=== PATIENT | female | born 1990 | race Caucasian/White ===

== ENCOUNTER 2017-08-03 23:39 | Emergency (ER) | payer BC, OTHER ==
[~2017-08-03] VITALS: Ht 167.6 cm; Wt 58.5 kg
[~2017-08-03 23:39] MED LIST: PANT40TA3 PO; birth control
[2017-08-03] MEDS ORDERED: LIDOCAINE 2%/EPI 1:100,000 20 ML VIAL. ONE (23:55)
[2017-08-04] MEDS ORDERED: LIDOCAINE 2%/EPI 1:100,000 20 ML VIAL. IJ ONE
[2017-08-04] MEDS ORDERED: HYDROcodone/APAP 7.5/325MG 1 TAB TABLET PO ONE
[2017-08-04] MEDS ORDERED: ONDANSETRON ODT 4 MG TAB.RAPDIS PO ONE
[2017-08-04] MEDS ORDERED: DIPHTH,PERTUSS(ACELL),TET TOX 0.5 ML DISP.SYRIN. VAX IM ONE (00:30)
--- NOTE | 2017-08-04 00:51 | PHYS DOC ---
General Chief Complaint: LACERATION/AVULSION Stated Complaint: LACERATION ON HEAD Time Seen by MD: 23:56 Source: patient Exam Limitations: no limitations Problems: History of Present Illness Initial Comments Patient is a 26-year-old female brought to the ED by her spouse with right facial laceration. They report that immediately prior to arrival the patient was accidentally scratched on the right side of her face by the claw of a friend's pet dog. They state it was not an aggressive act but an accident however the patient did suffer a laceration which has been bleeding. Her pain is under control tetanus status is unknown she denies any immunocompromise. She denies actual headache or head trauma but just grazing of the skin with the claw the animal. EtOH odor is noted patient is to drinking a moderate amount of alcohol this evening. Timing/Duration: abrupt, this evening Severity: moderate Location: facial Prearrival Treatment: no prearrival treatment Modifying Factors: improves with other Associated Symptoms: other Allergies: Coded Allergies: No Known Drug Allergies (Unverified , 07/28/15) Past Medical History Medical History: migraines, other (bipolar) Surgical History: noncontributory Social History Smoker: cigarettes Alcohol: occasionally Drugs: none Constitutional: denies chills, denies fever Eyes: denies blurred vision, denies decreased acuity Ears: denies clear discharge, denies purulent discharge Nose: denies congestion, denies epistaxis Mouth: denies loose teeth, denies swelling Throat: denies swelling, denies neck stiffness Respiratory: denies cough, denies shortness of breath Skin: see HPI Neurological: denies headache, denies numbness, denies paresthesia Physical Exam General Appearance: WD/WN, no apparent distress Eyes: bilateral eye normal inspection, bilateral eye PERRL, bilateral eye EOMI Nose: normal inspection Mouth/Throat: normal mouth inspection, pharynx normal Neck: non-tender, supple Cardiovascular/Respiratory: normal peripheral pulses, no respiratory distress 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, no motor/sensory deficits, alert, normal mood/affect, oriented x 3 Skin: normal color, warm/dry (left-sided frontotemporal laceration seeping blood curved 2 cm appears clean no foreign bodies or contused tissues) Laceration/Wound Repair Laceration/Wound Repair : Wound Location: face Wound's Depth, Shape: superficial, irregular Wound Length (cm): 2 Wound Explored: no foreign body removed Betadine Prep?: Yes Anesthesia: Lidocaine w/ Epi Volume Anesthetic (ccs): 4 Wound Debrided: minimal Wound Repaired With: sutures Suture Size/Type: 6:0, nylon (I would never even know) Number of Sutures: 7 Layer Closure?: No Sterile Dressing Applied?: No Splint Applied?: No Progress Informed consent obtained. Analgesia achieved with 4 mL 2% lidocaine with epinephrine. The wound was cleansed extensively with Betadine and then irrigated with normal saline. 7, 6- 0 Ethilon sutures with good wound edge approximation. Patient tolerated procedure well no complications estimated blood loss minimal. Bactroban ointment applied by RN, wound care instructions given [id number] by me and in written form per departure instructions. Orders, Labs, Meds Patient initially received [place] 10 mg and Zofran by mouth. Tetanus status updated, Rocephin 1 g IM given prophylactically. Departure Time of Disposition: 00:49 Disposition: 01 HOME, SELF-CARE Diagnosis: facial laceration Condition: IMPROVED Patient Instructions: Facial Laceration, [id number], Sutured Wound Care, Easy -to-Read, VIS, Tetanus, Diphtheria (Td); Tetanus, Diphtheria, Pertussis (Tdap) - CDC Additional Instructions: Use an old pillowcase as you may bleed intermittently the next few nights. [id number] ibuprofen for baseline discomfort. A Tylenol 3 starter pack was dispensed to you, take one every 6 hours for severe discomfort. Take with food. Try to keep wound dry for the first 48 hours. After 48 hours wash wound twice daily with soap and warm water, blot dry. Apply Bactroban ointment 3 times daily , allow wound to air dry 1 hour daily. Follow-up with her doctor or return to this emergency department in 5-7 days for wound check and possible suture removal. Return to ED with new or changing symptoms. AL DSOUZA DO Aug 04, 2017 00:51
[2017-08-04] MEDS ORDERED: ACETAMINOPHEN/CODEINE 300/30MG 4TABLET STARTPACK. PO ONE ×2 (00:52→01:00)
[2017-08-04] MEDS ORDERED: MUPI15CR TP (00:53)
[2017-08-04] MEDS ORDERED: cefTRIAXone IM 1 GM VIAL IM ONE (01:00)
[2017-08-04] MEDS ORDERED: MUPIROCIN 2% TOPICAL OINTMENT 22GM TUBE. TP ONE (01:00)
[2017-08-04] MEDS ORDERED: cefTRIAXone IV Push 1 GM VIAL. IVP ONE (01:01)
[2017-08-04 01:19] VITALS: BP 122/81
== END 2017-08-04 01:20 | disposition home or self-care (01) ==
LOC: ER 23:39
DX: S01.81XA Laceration without foreign body of other part of head, initial encounter (principal); G43.909 Migraine, unspecified, not intractable, without status migrainosus; F17.210 Nicotine dependence, cigarettes, uncomplicated; W54.8XXA Other contact with dog, initial encounter; Y93.89 Activity, other specified; Y99.8 Other external cause status; Y92.89 Other specified places as the place of occurrence of the external cause
CPT/HCPCS: 12011; 90471; 90715; 96372; 99284; J0696; Q0162